=== PATIENT | female | born 1985 | race Caucasian/White ===

== ENCOUNTER 2018-08-16 09:04 | Outpatient (CLI) | payer OTHER ==
--- NOTE | 2018-08-16 11:49 | MRI ---
MRI ABDOMEN WITHOUT CONTRAST: Date: 08/16/18 HISTORY: R10.11, chronic right upper quadrant pain. COMPARISON: None. TECHNIQUE: Multiplanar, multisequence MRI of the abdomen performed without intravenous contrast. 3D rendering pr ovided for MRCP. FINDINGS: There is no pericardial effusion. No pleural effusion. Low grade dextroscoliosis of the thoracolumbar spine. No marrow infiltrative process. The spleen is unremarkable. No significant hepatic steatosis. No intrahepatic or extrahepatic biliary dilatation. No gallbladder is appreciated. No hydronephrosis. Adrenal glands are unremarkable. Pancreatic duct size is normal. IMPRESSION: Normal MRI of the abdomen without contrast. No intrahepatic or extrahepatic biliary dilatation. No ch oledocholithiasis. POS: [facility]
== END 2018-08-16 09:05 | disposition home or self-care (01) ==
LOC: MRI 09:04
PROVIDERS: ATTEND Internal Medicine Gastroenterology
DX: R10.11 Right upper quadrant pain (principal); Z90.49 Acquired absence of other specified parts of digestive tract
CPT/HCPCS: 74181